=== PATIENT | female | born 1960 | race Caucasian/White ===

== ENCOUNTER 2023-10-29 15:41 | Emergency (ER) | payer BC, OTHER ==
[2023-10-29 16:06] VITALS: BMI 48.0
[2023-10-29] MEDS ORDERED: ONDANSETRON 4 MG/2 ML VIAL IVPUSH ONE (17:23)
[2023-10-29] MEDS ORDERED: SODIUM CHLORIDE 1,000 ML IV SCH (17:30)
[2023-10-29] MEDS ORDERED: ONDANSETRON 4 MG/2 ML VIAL ONE (17:36)
[2023-10-29] MEDS ORDERED: MECLIZINE HCL 25 MG TABLET (FP) PO ONE (17:48)
[2023-10-29 17:58] LABS: BASO % 1.4 % (0-2.0); EOS % 1.7 % (0-4.5); HEMATOCRIT 40.4 % (32.4-45.2); HEMOGLOBIN 13.6 GM/dL (10.7-15.3); LYMPH % 21.4 % (8-40); MCH 29.7 pg (25.7-33.7); MCHC 33.7 g/dl (32.0-36.0); MEAN CELL VOLUME 88.3 fl (80-96); MEAN PLT VOLUME 9.3 fl (7.5-11.1); MONO % 5.9 % (3.8-10.2); NEUT % 69.6 % (42.8-82.8); PLATELET COUNT 259 10^3/uL (134-434); RBC 4.58 M/mm3 (3.60-5.2); RDW 15.1 % (11.6-15.6); WHITE BLOOD COUNT 9.6 K/mm3 (4.0-10.0)
[2023-10-29] MEDS ORDERED: MECLIZINE HCL 25 MG TABLET (FP) ONE (18:08)
[2023-10-29 18:26] LABS: POTASSIUM 3.1 mmol/L (3.5-5.1)
[2023-10-29 18:28] LABS: ALBUMIN 3.6 g/dl (3.4-5.0); BLOOD UREA NITROGEN 13.4 mg/dL (7-18); CALCIUM 8.7 mg/dL (8.5-10.1); MAGNESIUM 1.6 mg/dL (1.8-2.4)
[2023-10-29 18:28] LABS: BASO % 0.6 % (0-2.0); EOS % 1.8 % (0-4.5); HEMATOCRIT 40.8 % (32.4-45.2); HEMOGLOBIN 13.6 GM/dL (10.7-15.3); LYMPH % 21.7 % (8-40); MCH 29.5 pg (25.7-33.7); MCHC 33.3 g/dl (32.0-36.0); MEAN CELL VOLUME 88.8 fl (80-96); MEAN PLT VOLUME 9.6 fl (7.5-11.1); MONO % 5.7 % (3.8-10.2); NEUT % 70.2 % (42.8-82.8); PLATELET COUNT 265 10^3/uL (134-434); WHITE BLOOD COUNT 10.6 K/mm3 (4.0-10.0)
[2023-10-29 18:32] LABS: PHOSPHOROUS 3.6 mg/dL (2.5-4.9)
[2023-10-29 18:33] LABS: BILIRUBIN,TOTAL 1.1 mg/dL (0.2-1); TOT PROT 7.1 g/dl (6.4-8.2)
[2023-10-29] MEDS ORDERED: MAGNESIUM SULF 50% (8.12 MEQ/2 ML-1 GM VIAL) IVPB ONE ×2 (18:35→18:37)
[2023-10-29 18:36] LABS: N-TERMINAL BNP 15.7 pg/ml (5-125)
[2023-10-29] MEDS ORDERED: POTASSIUM CHLORIDE TABS 20 MEQ TABLET.ER (FP) PO ONE (18:36)
[2023-10-29] MEDS ORDERED: POTASSIUM CHLORIDE ORAL LIQUID 20 MEQ/15 ML PO ONE (18:37)
[2023-10-29 18:46] LABS: POTASSIUM 3.1 mmol/L (3.5-5.1)
[2023-10-29] MEDS ORDERED: KCL 10 MEQ IVPB 10 MEQ/100 ML INFUS.BAG IVPB ONE (18:46)
[2023-10-29] MEDS ORDERED: MAGNESIUM 1GM/D5W - 1 GM/100 ML IVPB IVPB ONE (18:46)
[2023-10-29 18:48] LABS: CALCIUM 8.7 mg/dL (8.5-10.1)
[2023-10-29 18:49] LABS: ALBUMIN 3.6 g/dl (3.4-5.0); MAGNESIUM 1.6 mg/dL (1.8-2.4)
[2023-10-29 18:52] LABS: CREATININE 0.9 mg/dL (0.55-1.3); PHOSPHOROUS 3.7 mg/dL (2.5-4.9)
[2023-10-29 18:53] LABS: TOT PROT 7.1 g/dl (6.4-8.2)
[2023-10-29 18:57] LABS: N-TERMINAL BNP 16.5 pg/ml (5-125)
[2023-10-29] MEDS: KCL 10 MEQ IVPB 10 MEQ/100 ML INFUS.BAG IVPB SCH ×3 (20:50→22:52)
[2023-10-29] MEDS ORDERED: POTASSIUM CHLORIDE ORAL LIQUID 20 MEQ/15 ML ONE (20:52)
[2023-10-29 22:43] VITALS: BP 111/59; PULSE 80; RESP 19; TEMP 97.2
== END 2023-10-29 22:53 | disposition home or self-care (01) ==
LOC: JER 15:41
PROC: 3E033GC Introduction of Other Therapeutic Substance into Peripheral Vein, Percutaneous Approach (ICD-10-PCS; principal; 2023-10-29)
PROC: 3E033GC Introduction of Other Therapeutic Substance into Peripheral Vein, Percutaneous Approach (ICD-10-PCS; 2023-10-29)
DX: R42 Dizziness and giddiness (principal); E87.6 Hypokalemia; E83.42 Hypomagnesemia; R11.0 Nausea; R63.0 Anorexia
CPT/HCPCS: 36415; 70450-TC; 80053; 83735; 83880; 84100; 84443; 84484; 85025; 93005; 93010; 99285-25

== ENCOUNTER 2024-02-28 20:34 | Emergency (ER) | payer OTHER ==
[2024-02-28 20:44] VITALS: TEMP 98.2; BMI 49.2
[2024-02-28 22:46] LABS: EOS % 3.7 % (0-4.5); HEMATOCRIT 37.1 % (32.4-45.2); HEMOGLOBIN 12.5 GM/dL (10.7-15.3); LYMPH % 25.1 % (8-40); MCH 30.1 pg (25.7-33.7); MCHC 33.7 g/dl (32.0-36.0); MEAN CELL VOLUME 89.5 fl (80-96); MEAN PLT VOLUME 9.2 fl (7.5-11.1); NEUT % 64.2 % (42.8-82.8); PLATELET COUNT 216 10^3/uL (134-434); RBC 4.15 M/mm3 (3.60-5.2); RDW 14.5 % (11.6-15.6); WHITE BLOOD COUNT 7.6 K/mm3 (4.0-10.0)
[2024-02-28 22:54] LABS: INR 0.96 (0.83-1.09); PROTHROMBIN TIME (PATIENT) 11.1 SEC (9.7-13.0)
[2024-02-28 23:13] VITALS: BP 142/80; PULSE 103; RESP 16
[2024-02-28 23:14] LABS: POTASSIUM 4.2 mmol/L (3.5-5.1)
[2024-02-28 23:15] LABS: BLOOD UREA NITROGEN 11.9 mg/dL (7-18); CALCIUM 9.2 mg/dL (8.5-10.1); MAGNESIUM 1.8 mg/dL (1.8-2.4)
[2024-02-28 23:17] LABS: ALBUMIN 3.4 g/dl (3.4-5.0)
[2024-02-28 23:20] LABS: BILIRUBIN,TOTAL 0.5 mg/dL (0.2-1); CREATININE 0.6 mg/dL (0.55-1.3)
== END 2024-02-29 01:59 | disposition home or self-care (01) ==
LOC: JER 20:34
DX: L53.9 Erythematous condition, unspecified (principal); M79.604 Pain in right leg; M79.605 Pain in left leg; M79.89 Other specified soft tissue disorders; E11.65 Type 2 diabetes mellitus with hyperglycemia
CPT/HCPCS: 36415; 80053; 83735; 85025; 85610; 85730; 93970-TC; 99284-25

== ENCOUNTER 2024-03-21 18:13 | Emergency (ER) | payer OTHER ==
[2024-03-21 18:18] VITALS: BP 134/82; PULSE 111; RESP 18; TEMP 97.8; BMI 47.6
[2024-03-21] MEDS ORDERED: LIDOCAINE 4% PATCH TP ONE (20:05)
[2024-03-21] MEDS ORDERED: METHOCARBAMOL 500 MG TABLET ONE (20:05)
[2024-03-21] MEDS ORDERED: KETOROLAC TROMETHAMINE 60 MG/2 ML VIAL ONE (20:05)
[2024-03-21] MEDS: KETOROLAC TROMETHAMINE 60 MG/2 ML VIAL IM ONE (20:14)
[2024-03-21] MEDS: METHOCARBAMOL 750 MG TABLET PO STA (20:14)
[2024-03-21] MEDS: LIDOCAINE 5% TOPICAL PATCH TP ONE (20:14)
[2024-03-21] MEDS: KETOROLAC TROMETHAMINE 30 MG/1 ML VIAL IM ONE (20:15)
[2024-03-21] MEDS: METHOCARBAMOL 500 MG TABLET PO ONE (20:15)
[2024-03-21] MEDS ORDERED: DEXAMETHASONE SOD PHOSPHATE 10 MG/1 ML VIAL ONE (20:59)
[2024-03-21] MEDS: DEXAMETHASONE SOD PHOSPHATE 4 MG/1 ML VIAL IM ONE (21:33)
== END 2024-03-21 21:42 | disposition home or self-care (01) ==
LOC: JER 18:13
PROC: 3E023GC Introduction of Other Therapeutic Substance into Muscle, Percutaneous Approach (ICD-10-PCS; principal; 2024-03-21)
PROC: 3E023GC Introduction of Other Therapeutic Substance into Muscle, Percutaneous Approach (ICD-10-PCS; 2024-03-21)
DX: M54.41 Lumbago with sciatica, right side (principal); G89.29 Other chronic pain; R00.0 Tachycardia, unspecified
CPT/HCPCS: 96372; 99284-25